=== PATIENT | female | born 1990 | race Two or more races ===

== ENCOUNTER 2022-12-06 12:53 | Emergency (ER) | payer OTHER ==
[~2022-12-06] VITALS: Ht 157.5 cm; Wt 70.8 kg
[2022-12-06] MEDS ORDERED: VAZALORE81 MG PO (13:32)
[2022-12-06] MEDS ORDERED: [UNRECOGNIZED DRUG - OTHER] (13:33)
== END 2022-12-06 19:43 | disposition home or self-care (01) ==
LOC: ER 12:53
DX: O20.9 Hemorrhage in early pregnancy, unspecified (principal); Z3A.09 9 weeks gestation of pregnancy

== ENCOUNTER 2023-06-17 15:29 | Outpatient (CLI) | payer OTHER ==
[~2023-06-17 15:29] MED LIST: VAZALORE81 MG PO; [UNRECOGNIZED DRUG - OTHER]
== END 2023-06-17 16:47 | disposition home or self-care (01) ==
LOC: NST 15:29
PROVIDERS: ATTEND Obstetrics & Gynecology Gynecology
DX: Z34.83 Encounter for supervision of other normal pregnancy, third trimester (principal)

== ENCOUNTER 2023-06-25 09:11 | Inpatient (IN) | payer OTHER ==
[~2023-06-25] VITALS: Ht 165.1 cm; Wt 86.6 kg
== END 2023-06-28 13:07 | disposition home or self-care (01) | DRG 788 ==
LOC: LDR 09:11 → O/R 19:43 → OB/GYN 21:36
PROVIDERS: Obstetrics & Gynecology; ADMIT Obstetrics & Gynecology Gynecology; ATTEND Obstetrics & Gynecology Gynecology
PROC: 4A1HXCZ Monitoring of Products of Conception, Cardiac Rate, External Approach (ICD-10-PCS; 2023-06-25)
PROC: 10D00Z1 Extraction of Products of Conception, Low, Open Approach (ICD-10-PCS; principal; 2023-06-25 21:45)
DX: O33.8 Maternal care for disproportion of other origin (principal); Z3A.38 38 weeks gestation of pregnancy; Z20.822 Contact with and (suspected) exposure to COVID-19; Z37.0 Single live birth